=== PATIENT | female | born 1990 | race Caucasian/White ===

== ENCOUNTER → 2019-06-17 15:05 | Outpatient (CLI) | payer OTHER, SELFPAY ==
[2019-06-17 15:13] LABS: RBC Urine None Seen (0-5/HPF)
[2019-06-17 15:24] LABS: Appearance Urine UA SL CLOUDY; Bilirubin Urine UA NEGATIVE (NEGATIVE); Color Urine UA YELLOW; Glucose Urine UA NEGATIVE (Negative); Ketones Urine UA NEGATIVE (NEGATIVE); Leukocyte Esterase Urine UA 1+ (NEGATIVE); Nitrite Urine UA NEGATIVE (Negative); Occult Blood Urine UA NEGATIVE (Negative); Protein Urine UA NEGATIVE (Negative); Specific Gravity Urine UA 1.015 (1.000-1.035); Urobilinogen Urine UA 0.2 E.U./dL (0.2)
[2019-06-17 16:12] LABS: Bacteria Urine Many (>30); Culture Indicated Urine Specimen Cultured; Squamous Epithelial Cell Urine 0-1 /HPF (0-5/HPF); WBC Urine 10-30/HPF (0-5/HPF)
== END ==
PROVIDERS: Family Provider Specialist; PCP Specialist; Visit Provider Family Medicine
DX: R30.0 Dysuria (principal)
CPT/HCPCS: 81001; 87077; 87086; 87186

== ENCOUNTER → 2020-03-30 14:33 | Outpatient (CLI) | payer OTHER, SELFPAY | PROVIDERS: Family Provider Specialist; PCP Family Medicine; Referring Provider Family Medicine; Visit Provider Family Medicine | DX: K58.9 Irritable bowel syndrome, unspecified (principal); N92.6 Irregular menstruation, unspecified | CPT/HCPCS: 36415; 84443 ==

== ENCOUNTER → 2020-06-15 12:49 | Outpatient (CLI) | payer OTHER, SELFPAY ==
[2020-06-15 14:03] LABS: Appearance Urine UA CLEAR; Bilirubin Urine UA NEGATIVE (NEGATIVE); Color Urine UA YELLOW; Glucose Urine UA NEGATIVE (Negative); Ketones Urine UA NEGATIVE (NEGATIVE); Leukocyte Esterase Urine UA TRACE (NEGATIVE); Nitrite Urine UA NEGATIVE (Negative); Occult Blood Urine UA NEGATIVE (Negative); Protein Urine UA NEGATIVE (Negative); Specific Gravity Urine UA <=1.005 (1.000-1.035); Urobilinogen Urine UA 0.2 E.U./dL (0.2)
[2020-06-15 14:05] LABS: Bacteria Urine None Seen; RBC Urine None Seen (0-5/HPF)
[2020-06-15 14:09] LABS: Culture Indicated Urine Specimen Cultured; WBC Urine 5-10/HPF (0-5/HPF)
== END ==
PROVIDERS: Family Provider Specialist; PCP Family Medicine; Referring Provider Family Medicine; Visit Provider Family Medicine
DX: R30.0 Dysuria (principal)
CPT/HCPCS: 81003; 81015; 87086

== ENCOUNTER → 2020-06-25 09:56 | Outpatient (CLI) | payer OTHER, SELFPAY | PROVIDERS: Family Provider Specialist; PCP Family Medicine; Referring Provider Family Medicine; Visit Provider Family Medicine | DX: N91.2 Amenorrhea, unspecified (principal) | CPT/HCPCS: 36415; 84702 ==

== ENCOUNTER → 2020-08-04 15:25 | Outpatient (CLI) | payer OTHER, SELFPAY ==
[2020-08-04 16:00] LABS: Specimen Label NATERA KIT TEST
[2020-08-04 16:25] LABS: Add Manual Diff / Slide Review NO; Basophils Absolute Auto 0 /uL (0-100); Basophils Percent Auto 0.2 % (0-2); Eosinophils Absolute Auto 0 /uL (0-450); Eosinophils Percent Auto 0.4 % (2-4); Hematocrit 35.1 % (36-46); Hemoglobin 12.4 g/dL (12.0-16.0); Lymphocytes Absolute Auto 2000 /uL (1100-4500); Lymphocytes Percent Auto 26.1 % (25-40); Mean Corpuscular HGB Conc 35.4 % (30-36); Mean Corpuscular Volume 93.1 fL (80-100); Monocytes Absolute Auto 400 /uL (0-900); Monocytes Percent Auto 4.9 % (3-14); Neutrophils Absolute Auto 5400 /uL (1500-7000); Neutrophils Percent Auto 68.4 % (50-75); Platelet Count 274 X10^3/uL (150-400); Red Blood Cell Count 3.76 X10^6/uL (4.0-5.2); Red Cell Distribution Width 12.1 % (11.6-14.8); White Blood Cell Count 7.9 X10^3/uL (4.5-11.0)
[2020-08-04 16:44] LABS: Appearance Urine UA CLEAR; Bilirubin Urine UA NEGATIVE (NEGATIVE); Color Urine UA YELLOW; Glucose Urine UA NEGATIVE (Negative); Ketones Urine UA NEGATIVE (NEGATIVE); Leukocyte Esterase Urine UA NEGATIVE (NEGATIVE); Nitrite Urine UA NEGATIVE (Negative); Occult Blood Urine UA NEGATIVE (Negative); Protein Urine UA NEGATIVE (Negative); Specific Gravity Urine UA 1.025 (1.000-1.035); Urobilinogen Urine UA 0.2 E.U./dL (0.2)
[2020-08-05 05:38] LABS: RPR Screen Non Reactive (Non Reactive)
[2020-08-05 08:13] LABS: Varicella IgG Antibody >4000 index (Immune >165)
[2020-08-06 16:30] LABS: Hepatitis B Surface Antigen NEGATIVE s/c (NEGATIVE); Rubella Antibody IgG 7.6 IU/mL (>15)
[2020-08-06 16:48] LABS: HIV 1 & 2 Ab/Ag 4th Gen Combo NEGATIVE (NEGATIVE); Hep C Virus Ab w/Reflex Quant NEGATIVE s/c (NEGATIVE)
== END ==
PROVIDERS: Family Provider Specialist; PCP Family Medicine; Referring Provider Family Medicine; Visit Provider Family Medicine
DX: Z34.81 Encounter for supervision of other normal pregnancy, first trimester (principal)
CPT/HCPCS: 36415; 80055; 81003; 86787; 86803; 86850; 86900; 86901; 87086; 87389

== ENCOUNTER → 2020-10-12 14:04 | Outpatient (CLI) | payer OTHER, SELFPAY ==
--- NOTE | 2020-10-12 14:07 | DI.US.S_ITS ---
PROCEDURE: US OB >= 14 WEEKS FETUS INDICATIONS: ANATOMIC SURVEY OUTSIDE/PRIOR DATING DATA: Last menstrual period (LMP): 05/25/2020. LMP-based estimated date of delivery (EFRAIN): 03/01/2021 . First dating scan (date and location): 10/12/2020 . Estimated date of delivery (EFRAIN) from first dating scan: 03/01/2021 . TECHNIQUE: Real-time scanning was performed of the fetus, with image documentation and biometric measurements. Endovaginal scanning: No COMPARISON: None. FINDINGS: General: A single living intrauterine gestation is present. Presentation: Vertex. Placenta: Placental position is posterior , without previa. Amniotic fluid index: 11 cm, normal range is 5-24 cm. heart rate: 149 beats per minute. Maternal cervical canal: 4.0 cm long. Normal lower limit is 2.5 cm. biometrics: Biparietal diameter: 20 weeks 2 days Head circumference: 19 weeks 6 days Abdominal circumference: 19 weeks 3 days Femur length: 20 weeks 1 day Estimated gestational age from initial scan: 20 weeks 0 days Composite gestational age from present scan: 20 weeks 0 days Estimated weight and percentile: 313 g; 33rd percentile Measurement variability for biometric dating: +/- 7 days from 14 weeks to 15 weeks 6 days gestation, +/- 10 days from 16 weeks to 21 weeks 6 days gestation, +/- 2 weeks from 22 weeks to 27 weeks 6 days gestation, +/- 3 weeks for 28 weeks gestation or later. weight reference: 4500 g or EFW >90/95% is considered macrosomia or large for gestational age. EFW <10% is small for gestational age. EFW 5% or less is considered intra-uterine growth restriction. Anatomic survey: Neuro: Ventricles are non-dilated at less than 10 mm. Cisterna magna is normal at 3-11 mm. Cerebellum is normal in size and morphology. Nuchal skin fold: Normal at less than 6 mm between 14-21 weeks gestational age. Face: Nose and lips, facial profile are normal. Spine: No evidence for spina bifida. Heart: 4-chambered heart is present, with normal ventricular outflow tracts. Diaphragm: Diaphragm is intact. Stomach: Left-sided stomach is present. Kidneys: No hydronephrosis. Normal is less than 5 mm in 2nd trimester, less than 7 mm in 3rd trimester. Cord: 3-vessel cord has orthotopic insertion. Bladder: Normal in size. Extremities: All 4 extremities identified. IMPRESSION: 1. Single living IUP present with composite gestational age of 20 weeks 0 days corresponding to ultrasound EFRAIN of 03/01/2021. 2. Normal anatomic survey. Dictated by: Jamaal Fajardo [facility] Interpreted: Stiven Lennon MD on 10/12/2020 at 16:21 Approved by: Stiven Lennon M.D. on 10/12/2020 at 17:31
== END ==
PROVIDERS: Family Provider Specialist; PCP Family Medicine; Referring Provider Family Medicine; Visit Provider Family Medicine
DX: Z34.82 Encounter for supervision of other normal pregnancy, second trimester (principal); Z3A.20 20 weeks gestation of pregnancy
CPT/HCPCS: 76811

== ENCOUNTER → 2020-12-11 10:16 | Outpatient (CLI) | payer OTHER, SELFPAY ==
[2020-12-11 12:16] LABS: Hematocrit 30.7 % (36-46); Hemoglobin 10.5 g/dL (12.0-16.0)
[2020-12-11 12:38] LABS: GTT (PREG) 1 Hour PP 50gm Dose 146 mg/dL (76-139)
== END ==
PROVIDERS: Family Provider Specialist; PCP Family Medicine; Referring Provider Family Medicine; Visit Provider Family Medicine
DX: Z34.82 Encounter for supervision of other normal pregnancy, second trimester (principal); Z3A.25 25 weeks gestation of pregnancy
CPT/HCPCS: 36415; 82950; 85014; 85018

== ENCOUNTER → 2020-12-16 10:30 | Outpatient (CLI) | payer OTHER, SELFPAY ==
[2020-12-16 11:31] LABS: Glucose Fasting Gestational 71 mg/dL (76-95)
[2020-12-16 12:55] LABS: Glucose 1 Hour Gest 109 mg/dL (76-180)
[2020-12-16 13:22] LABS: Glucose 2 Hour Gest 76 mg/dL (76-155)
[2020-12-16 13:52] LABS: Glucose Tol Interp,Gestational INTERPRETATION
[2020-12-16 14:43] LABS: Glucose 3 Hour Gest 71 mg/dL (76-140)
== END ==
PROVIDERS: Family Provider Specialist; PCP Family Medicine; Referring Provider Family Medicine; Visit Provider Family Medicine
DX: R73.09 Other abnormal glucose (principal)
CPT/HCPCS: 36415; 82951; 82952

== ENCOUNTER → 2021-02-03 15:10 | Outpatient (CLI) | payer OTHER, SELFPAY ==
[2021-02-04 11:21] LABS: Strep Grp B PCR NEG for Grp B Strep
== END ==
PROVIDERS: Family Provider Specialist; PCP Family Medicine; Visit Provider Family Medicine
DX: Z34.83 Encounter for supervision of other normal pregnancy, third trimester (principal); Z3A.36 36 weeks gestation of pregnancy
CPT/HCPCS: 87653

== ENCOUNTER 2021-02-28 19:32 | Inpatient (IN) | payer OTHER, SELFPAY ==
[2021-02-28 19:36] VITALS: BP 119/70
[2021-02-28] MEDS: LACTATED RINGERS 1,000 ML 100 ML IV (20:00)
--- NOTE | 2021-02-28 20:40 | PM.OBHP.1 ---
OB HPI Date/Time Date of admission: 02/28/21 Date Patient Seen: 02/28/21 Time Patient Seen: 20:40 History of Present Condition Chief complaint: EVAL OF LABOR : 3 Para: 2 Estimated Date of Delivery: 03/01/21 Estimated Gestational Age (weeks): 39.6 Narrative: Gail Baugh is a 30 year old female @39wks 6days here for labor evaluation. Contractions started around 5pm and became strong and 5 minutes apart around 6pm. No niranjan every 2-3 minutes, breathing through them. Thinks her water broke 20 minutes ago in the triage room. A small amount of clear fluid was seen. No VB. Uncomplicated PN care w/ . History of rapid labors (6.5-4.5 hours), but thinks this one is progressing slower. 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 Grandmother CVA (cerebral vascular accident) Grandfather Smoker Grandmother Indira Gehrig disease Social History marital status: number of children: 2 household members: spouse and children pets and animals: Yes (X 2 dogs and X 1 cat) education level: college (Ass. 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[employer] [place] needs: No Smoking Status: Former smoker (X 1 month age 18) alcohol intake: former (Pre- : on occasion) substance use type: does not use Meds Home Medications and Allergies Home Medications Medication Instructions Recorded Confirmed Type doxylamine succinate 25 mg tablet 25 mg PO BEDTIME PRN 07/14/20 02/24/21 History omega-3 fatty acids 1,000 mg 1,000 mg PO DAILY 07/14/20 02/24/21 History capsule prenat.vits,thania,vxs-[id number]-[id number] 1 tab PO DAILY 07/14/20 02/24/21 History pyridoxine (vitamin B6) 25 mg 25 mg PO DAILY 07/14/20 02/24/21 History tablet hydrocortisone acetate 25 mg 25 mg [place] BID #12 ea 02/08/21 02/24/21 Rx rectal suppository Allergies Allergy/AdvReac Type Severity Reaction Status Date / Time Sulfa (Sulfonamide Allergy Severe FACIAL Verified 02/24/21 14:48 Antibiotics) SWELLING nitrofurantoin AdvReac Intermediate Hives Verified 02/24/21 14:48 Review of Systems Review of Systems ROS: Yes All systems reviewed with the patient and are negative except as otherwise documented Exam Vital Signs (past 8 hours): BP 119/70mmHg, HR 96bpm, RR 18/min, T 36.4C Temporal, SpO2 100% on RA Const General: healthy appearing Other: Coping well Resp Effort & Inspection: normal respiratory effort Cardio Rate: regular rate Rhythm: regular rhythm Presentation: vertex Objective Labs Result Diagrams: 02/28/21 20:30 Assessment and Plan Assessment and Plan Assessment and Plan narrative: A: Term multipara Active labor Rubella NOONimmune Anemia No indication for GBS prophylaxis Cat I FHR P: Admit, routine labor orders w/ COVID screening. Epidural DANTE. Will call for the .
[2021-02-28 20:45] LABS: Add Manual Diff / Slide Review NO; Basophils Absolute Auto 0 /uL (0-100); Basophils Percent Auto 0.2 % (0-2); Eosinophils Absolute Auto 0 /uL (0-450); Eosinophils Percent Auto 0.4 % (2-4); Hematocrit 29.7 % (36-46); Hemoglobin 10.3 g/dL (12.0-16.0); Lymphocytes Absolute Auto 2200 /uL (1100-4500); Lymphocytes Percent Auto 25.1 % (25-40); Mean Corpuscular HGB Conc 34.7 % (30-36); Mean Corpuscular Hemoglobin 31.8 PG (26-34); Mean Corpuscular Volume 91.6 fL (80-100); Monocytes Absolute Auto 600 /uL (0-900); Neutrophils Absolute Auto 5800 /uL (1500-7000); Neutrophils Percent Auto 67.3 % (50-75); Platelet Count 263 X10^3/uL (150-400); Red Blood Cell Count 3.25 X10^6/uL (4.0-5.2); Red Cell Distribution Width 12.3 % (11.6-14.8); White Blood Cell Count 8.6 X10^3/uL (4.5-11.0)
[2021-02-28 21:09] LABS: COVID19 - ADMIT (NP swab/PCR) Negative (Negative)
[2021-02-28] MEDS: OXYTOCIN PREMIX 30 UNIT/500 ML PLAST..BAG 200 UNIT IV (23:30)
--- NOTE | 2021-02-28 23:42 | PM.OBPRVD ---
Labor & Delivery Delivery date: 02/28/21 Intrapartal Events: None Cervical ripening method: none Induction method: none Delivery augmentation: rupture of membranes Delivery monitor: external FHT and external uterine Route of delivery: L&D Laceration Description: None Estimated blood loss (mL): 150 Anesthesia Type: Epidural (x2) Narrative: Patient labored comfortably after second epidural. AROM of forebag revealed clear fluid. Amauri was checked w/ report of increasing rectal pressure, C/C/+2. Minimal coaching w/ strong maternal push led to NSVB of a vigorous baby girl in GAURAV position over an intact perineum. delivered through a single loose nuchal cord and the shoulders delivered easily without additional maneuvers. was lifted to maternal abdomen by her father for drying and skin to skin. 30units of pitocin in 500mL LR was started at 250mL/hr for AMTSL. After 2 minutes, the cord was double clamped by CNM and cut by FOB. Cord blood sample was collected. Gentle cord traction and a single maternal push led to a spontaneous, Schultze delivery of an apparently intact placenta, membranes and 3VC. Fundus was immendiately firm and bleeding was minimal. QBL 150mL. Both mother and baby stable and skin to skin as I left the room. Baby 1: gender: Female Presentation: vertex Position: Right Occiput Anterior Placenta delivery description: Spontaneous Cord Vessel Description: 3 Vessels score (1 min): 8 score (5 min): 9 Narrative: Weight: pending Plan for aftercare: Routine care
[2021-03-01] MEDS: KETOROLAC 30 MG/ML VIAL IV (00:51)
[2021-03-01] MEDS: OXYCODONE IR 5 MG TABLET PO ×5 (00:54→17:32)
[2021-03-01] MEDS: ACETAMINOPHEN 325 MG TABLET 650 MG PO (05:10)
[2021-03-01] MEDS: DERMOPLAST SPRAY 20% 60 ML 1 SPRAY TOP (05:11)
[2021-03-01] MEDS: IBUPROFEN 600 MG TABLET PO ×2 (07:40→13:22)
[2021-03-01] MEDS: DOCUSATE 100 MG CAPSULE PO (09:09)
[2021-03-01] MEDS: MEASLES,MUMPS,RUBELLA VACC/PF 0.5 ML VIAL SUBCUT (11:58)
--- NOTE | 2021-03-01 12:25 | P.DS_ITS ---
Discharge Providers Provider Date of admission: 02/28/21 19:32 Discharge Date: 03/01/21 Primary care physician: William English MD Consults: 03/01/21 23:34 Consult to Primary Care Provider Routine Comment: Discharge provider: Joelle Tejeda MD Summary Hospital Course Date Patient Seen: 03/01/21 Time Patient Seen: 12:25 Diagnoses: Hospital Course: This patient was admitted in active labor and had an uncomplicated shortly thereafter. Patient reports cramping with , but mild lochia, normal bowel and bladder habits, no other pain, and no other symptoms. Patient to be discharged home on the evening on PPD#1 with routine precautions. Peripartum Data Delivery Method: Natural Vaginal Laceration Description: None complications: none [place] 1: Gender: Female Disposition of : home Status at Discharge Cognitive/behavioral status at discharge: oriented Functional status at discharge: independent ambulation Overall status at discharge: patient is not back to baseline Time Spent with Patient Time attestation: Total time spent providing and/or coordinating discharge services: Time spent: Less than 30 minutes Objective Labs Result Diagrams: 02/28/21 20:30 Labs: Laboratory Results - last 24 hr 02/28/21 02/28/21 02/28/21 20:05 20:30 20:30 WBC 8.6 RBC 3.25 L Hgb 10.3 L Hct 29.7 L MCV 91.6 MCH 31.8 MCHC 34.7 RDW 12.3 Plt Count 263 Neut % (Auto) 67.3 Lymph % (Auto) 25.1 [place] % (Auto) 7.0 Eos % (Auto) 0.4 L Baso % (Auto) 0.2 Neut # (Auto) 5800 Lymph # (Auto) 2200 [place] # (Auto) 600 Eos # (Auto) 0 Baso # (Auto) 0 SARS-CoV-2 (PCR) Negative Blood Type O Positive Antibody Screen Negative Exam Vital Signs (past 8 hours): T 97.9F, 108/63, HR 66 Const General: cooperative, healthy appearing and comfortable Resp Effort & Inspection: normal respiratory effort Auscultation: clear to auscultation bilaterally Cardio Rate: regular rate Rhythm: regular rhythm GI Palpation: No tender Other: fundus firm, well below u Extrem General: normal to inspection Discharge Plan Discharge Plan Patient Disposition: Home Discharge orders & Medications Prescriptions: New oxycodone 5 mg tablet 5 mg PO Q6H PRN (Reason: pain) Qty: 14 RF: 0 Continued hydrocortisone acetate [Anusol-HC] 25 mg suppository 25 mg [place] BID Qty: 12 RF: 0 prenat.vits,thania,prx-ivsm-qltyk Tablet 1 tab PO DAILY RF: 0 omega-3 fatty acids [Fish Oil Concentrate] 1,000 mg capsule 1,000 mg PO DAILY RF: 0 Unisom (doxylamine) 25 mg tablet 25 mg PO BEDTIME PRNRF: 0 pyridoxine (vitamin B6) 25 mg tablet 25 mg PO DAILY RF: 0 Follow up/Referrals: William English MD [Primary Care Provider] - 6 Weeks (Please make 6 week follow up appointment while in the office for baby's appointment (03/03 at 2:45pm) ) Diet/Activity/Treatments Diet: Regular Activity: Nothing in the vagina for 6 weeks. Avoid heavy lifting for 6 weeks. If you have increasing bleeding, fevers, chills, nausea, headache, visual changes, or any other symptoms or concerns, call the office or come to the emergency room. Skin/Wound/Dressing Care Report to your healthcare provider any signs of infection, such as:: chills, fever, night sweats, increased pain, unusual drainage and unusual redness Visit Report/Discharge Packet Instructions: DI for Labor and Delivery, Vaginal Discharge Data Primary Care Provider: William English
[2021-03-01 12:49] VITALS: BP 108/63; PULSE 66; RESP 18; TEMP 36.6
== END 2021-03-01 19:35 | disposition home or self-care (01) | DRG 807 ==
PROVIDERS: Admitting Provider Nurse Practitioner Obstetrics & Gynecology; Family Provider Specialist; PCP Family Medicine; Referring Provider Nurse Practitioner Obstetrics & Gynecology; Visit Provider Nurse Practitioner Obstetrics & Gynecology
DX: O69.81X0 Labor and delivery complicated by cord around neck, without compression, not applicable or unspecified (principal); Z37.0 Single live birth; Z3A.39 39 weeks gestation of pregnancy; Z20.822 Contact with and (suspected) exposure to COVID-19
CPT/HCPCS: 01967; 36415; 59050; 85025; 86850; 86900; 86901; 87635; C9803; G0379; J1885; J2590

== ENCOUNTER → 2021-07-28 11:17 | Outpatient (CLI) | payer OTHER, SELFPAY ==
--- NOTE | 2021-07-28 | DI.MRI.S_ITS ---
PROCEDURE: MR KNEE LT WO CON INDICATIONS: Unspecified internal derangement of left knee TECHNIQUE: Noncontrast sagittal PD fast spin echo and T2 fast spin echo with fat saturation, sagittal 3-D FLASH with fat saturation; coronal T1 spin echo and PD fast spin echo with fat saturation, and axial PD fast spin echo with fat saturation through the knee. COMPARISON: [facility], CR, XR KNEE 4+ VIEWS LEFT, 06/25/2021, 15:43. FINDINGS: Image quality: Excellent. Menisci: There is partial-thickness radial tearing at the body of the lateral meniscus. There is no significant meniscal extrusion. The medial meniscus is intact. Cruciate ligaments: The anterior and posterior cruciate ligaments appear intact. Medial structures: The medial collateral ligament appears intact. The semimembranosus tendon insertions and meniscocapsular junction appear intact. Visualized portions of the pes anserinus tendons appear normal. No abnormal bursal fluid. Lateral structures: The lateral collateral ligament, long and short heads of the biceps femoris tendon appear intact. The popliteus tendon appears intact. No signs of posterolateral corner injury. Iliotibial band appears normal. Anterior structures: There is mild patella patricia. The distal quadriceps tendon is intact. A mildly congenitally shallow trochlear groove is noted without patellar subluxation. The tibial tubercle-trochlear groove distance is within normal limits. No edema in the infrapatellar fat pad. Bones and cartilage: No bone marrow contusions or fractures. The cartilage of the medial and lateral femorotibial compartments, as well as the patellofemoral compartment, appears normal in thickness. Joint space: Small joint effusion. Trace medial popliteal cyst. IMPRESSION: 1. Partial-thickness radial tear at the body of the lateral meniscus. 2. Mild patella patricia. 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 3. Small joint effusion. Dictated by: Trey Ritchie M.D. on 07/28/2021 at 12:20 Approved by: Trey Ritchie M.D. on 07/28/2021 at 12:50
== END ==
PROVIDERS: Family Provider Specialist; PCP Family Medicine; Referring Provider Orthopaedic Surgery Adult Reconstructive Orthopaedic Surgery; Visit Provider Orthopaedic Surgery
DX: S83.282A Other tear of lateral meniscus, current injury, left knee, initial encounter (principal); M25.462 Effusion, left knee
CPT/HCPCS: 73721

== ENCOUNTER → 2022-03-03 09:29 | Outpatient (CLI) | payer OTHER, SELFPAY | PROVIDERS: Family Provider Specialist; PCP Family Medicine; Visit Provider Physician Assistant | DX: J02.9 Acute pharyngitis, unspecified (principal); L98.9 Disorder of the skin and subcutaneous tissue, unspecified | CPT/HCPCS: 87070 ==

== ENCOUNTER → 2023-02-13 14:36 | Outpatient (CLI) | payer OTHER, SELFPAY ==
[2023-02-13 15:14] LABS: Add Manual Diff / Slide Review NO; Basophils Absolute Auto 0 /uL (0-100); Basophils Percent Auto 0.4 % (0-2); Eosinophils Absolute Auto 700 /uL (0-450); Eosinophils Percent Auto 12.2 % (2-4); Hematocrit 36.2 % (36-46); Hemoglobin 12.4 g/dL (12.0-16.0); Lymphocytes Absolute Auto 2000 /uL (1100-4500); Lymphocytes Percent Auto 34.2 % (25-40); Mean Corpuscular HGB Conc 34.2 % (30-36); Mean Corpuscular Hemoglobin 31.8 PG (26-34); Mean Corpuscular Volume 93.1 fL (80-100); Monocytes Absolute Auto 300 /uL (0-900); Monocytes Percent Auto 4.5 % (3-14); Neutrophils Absolute Auto 2800 /uL (1500-7000); Neutrophils Percent Auto 48.7 % (50-75); Platelet Count 238 X10^3/uL (150-400); Red Blood Cell Count 3.89 X10^6/uL (4.0-5.2); Red Cell Distribution Width 12.2 % (11.6-14.8); White Blood Cell Count 5.8 X10^3/uL (4.5-11.0)
[2023-02-13 15:45] LABS: Alanine Aminotransferase 21 IU/L (<35); Albumin 4.5 g/dL (3.5-5.0); Albumin Globulin Ratio 1.5 (1.0-2.8); Alkaline Phosphatase 45 U/L (38-126); Aspartate Aminotransferase 25 IU/L (14-36); BUN Creatinine Ratio 22.7 (6-22); Bilirubin Total 0.7 mg/dL (0.2-1.3); Blood Urea Nitrogen 15 mg/dL (7-17); Calcium 9.5 mg/dL (8.4-10.2); Carbon Dioxide 28 mmol/L (22-32); Chloride 102 mmol/L (98-107); Estimated Glomerular Filt Rate > 60 mL/min (>60); Glucose 76 mg/dL (70-100); HEMOLYSIS < 15 (0-50); Potassium 3.9 mmol/L (3.4-5.1); Sodium 138 mmol/L (137-145); Total Protein 7.5 g/dL (6.3-8.2)
[2023-02-13 16:12] LABS: TSH w/ Reflex to FT4 0.64 uIU/mL (0.47-4.68)
[2023-02-14 07:53] LABS: Interpretation Negative (Negative)
== END ==
PROVIDERS: Family Provider Specialist; PCP Family Medicine; Referring Provider Family Medicine; Visit Provider Family Medicine
DX: R10.9 Unspecified abdominal pain (principal)
CPT/HCPCS: 36415; 80053; 83013; 84443; 85025; 86677

== ENCOUNTER → 2023-02-23 10:11 | Outpatient (CLI) | payer OTHER, SELFPAY ==
[2023-02-23 12:54] LABS: Erythrocyte Sedimentation Rate 8 MM/HR (0-20)
[2023-02-23 15:14] LABS: C-Reactive Protein Quant < 0.5 mg/dL (<1.0)
[2023-02-25 16:30] LABS: Deamidated Gliadin Ab IgA 4 units (0-19); Deamidated Gliadin Ab IgG 2 units (0-19); Immunoglobulin A,Qn 237 mg/dL (87-352); t-Transglutaminase IgA <2 U/mL (0-3)
[2023-02-27 18:17] LABS: Calprotectin, Stool 50 ug/g (0-120)
== END ==
PROVIDERS: Family Provider Specialist; PCP Family Medicine; Referring Provider Family Medicine; Visit Provider Family Medicine
DX: R10.9 Unspecified abdominal pain (principal)
CPT/HCPCS: 36415; 82784; 83516; 83993; 85651; 86140; 87045; 87177; 87899; 89055

== ENCOUNTER → 2023-02-24 17:18 | Outpatient (CLI) | payer OTHER, SELFPAY ==
[2023-02-24 20:41] LABS: Occult Blood 1 Negative (Negative)
[2023-02-24 20:42] LABS: Occult Blood 2 Negative (Negative); Occult Blood 3 Negative (Negative)
== END ==
PROVIDERS: Family Provider Specialist; PCP Family Medicine; Referring Provider Family Medicine; Visit Provider Family Medicine
DX: R10.9 Unspecified abdominal pain (principal)
CPT/HCPCS: 82270

== ENCOUNTER → 2023-03-06 08:58 | Outpatient (CLI) | payer OTHER, SELFPAY ==
--- NOTE | 2023-03-06 08:59 | DI.US.S_ITS ---
PROCEDURE: US ABDOMEN COMPLETE INDICATIONS: Left sided abdominal pain TECHNIQUE: Real-time scanning was performed of the abdominal and retroperitoneal organs, with image documentation. COMPARISON: None. FINDINGS: Liver: Liver is normal in size and homogeneous in echotexture. Gallbladder: Unremarkable. Biliary ducts: Intrahepatic bile ducts are non-dilated. Extrahepatic bile duct caliber measures 2.8 mm. Normal is 6-7 mm or less in diameter, or 10 mm or less post-cholecystectomy. Pancreas: Visualized portions of the pancreas are sonographically normal. Spleen: Spleen is normal in size and homogeneous in echotexture. Kidneys: Kidneys are normal in size and echotexture. Right kidney measures 11.4 cm long; left kidney measures 9.9 cm long. No hydronephrosis or nephrolithiasis. No solid masses. Aorta: Visualized aorta is normal in caliber at less than 3 cm. Iliacs: Proximal common iliac arteries are normal in caliber at less than 2.5 cm. IVC: Intrahepatic inferior vena cava is patent. Miscellaneous: No free abdominal fluid. IMPRESSION: No acute abnormality. No sonographic evidence of renal stones or hydronephrosis. Dictated by: Jorge Rowland M.D. on 03/06/2023 at 11:42 Approved by: Jorge Rowland M.D. on 03/06/2023 at 11:43
== END ==
PROVIDERS: Family Provider Specialist; PCP Family Medicine; Referring Provider Family Medicine; Visit Provider Family Medicine
DX: R10.9 Unspecified abdominal pain (principal)
CPT/HCPCS: 76700

== ENCOUNTER → 2023-03-30 07:00 | Outpatient (CLI) | payer OTHER, SELFPAY | PROVIDERS: Family Provider Specialist; PCP Family Medicine; Visit Provider Student in an Organized Health Care Education/Training Program | DX: J02.9 Acute pharyngitis, unspecified (principal) | CPT/HCPCS: 87070 ==

== ENCOUNTER → 2025-04-01 09:24 | Outpatient (CLI) | payer OTHER, SELFPAY ==
[2025-04-01 11:14] LABS: TSH w/ Reflex to FT4 0.99 uIU/mL (0.47-4.68)
== END ==
PROVIDERS: Family Provider Specialist; PCP Family Medicine; Referring Provider Family Medicine; Visit Provider Family Medicine
DX: Z78.9 Other specified health status (principal); N92.6 Irregular menstruation, unspecified
CPT/HCPCS: 36415; 84443

== ENCOUNTER → 2025-06-06 16:17 | Outpatient (CLI) | payer OTHER, SELFPAY ==
--- NOTE | 2025-06-06 16:19 | DI.MRI.S_ITS ---
PROCEDURE: MRFOOT LT WO CON INDICATIONS: METATARSALGIA OF LEFT FOOT TECHNIQUE: Multiphasic, multisequence MRI of the forefoot was performed, without intravenous contrast administration. COMPARISON: [facility], CR, XR FOOT 3 VIEWS WEIGHT BEARING LEFT, 05/27/2025, 15:13. FINDINGS: Image quality: Excellent. Bones and joints: Mild degenerative changes of 1st metatarsophalangeal joint, with mild marrow edema at the 1st metatarsal head. Moderate effusion at the 1st metatarsal phalangeal joint. Bipartite fibula hallucal sesamoid with marrow edema and T1 hypointensity, presenting avascular necrosis with sesamoiditis. There is marrow edema at the 2nd distal phalangeal tuft, nonspecific. no acute fracture. Soft tissues: Mild thickening of the central cord of the plantar fascia, partially visualized, raising concern for plantar fasciitis. The flexor, and extensor tendons are grossly unremarkable. Trace 1st, and 2nd intermetatarsal bursitis. No Nuno's neuroma. The Lisfranc ligament is intact. IMPRESSION: 1. Mild degenerative changes of the 1st metatarsophalangeal joint. 2. 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 3. Marrow edema of the 2nd distal phalangeal tuft, nonspecific and may represent marrow contusion. 4. Findings suggestive of plantar fasciitis, partially visualized. Dictated by: Jaz Driver M.D. on 06/09/2025 at 10:41 Approved by: Jaz Driver M.D. on 06/09/2025 at 10:48
== END ==
PROVIDERS: Family Provider Specialist; PCP Family Medicine; Referring Provider Podiatrist; Visit Provider Podiatrist
DX: M77.42 Metatarsalgia, left foot (principal); M25.872 Other specified joint disorders, left ankle and foot; M87.875 Other osteonecrosis, left foot; M25.475 Effusion, left foot
CPT/HCPCS: 73718